=== PATIENT | female | born 1980 | race Caucasian/White ===

== ENCOUNTER 2017-01-09 10:40 | Emergency (ER) | payer OTHER ==
[~2017-01-09] VITALS: Ht 167.6 cm; Wt 77.3 kg
[2017-01-09] MEDS ORDERED: ENOX80DI8 SQ (10:46)
[2017-01-09] MEDS ORDERED: PREN-94 PO (10:48)
[2017-01-09 13:30] VITALS: BP 139/75
== END 2017-01-09 13:45 | disposition home or self-care (01) ==
LOC: EMS 10:43
DX: O9A.212 Injury, poisoning and certain other consequences of external causes complicating pregnancy, second trimester (principal); I10 Essential (primary) hypertension; Z3A.16 16 weeks gestation of pregnancy; V49.88XA Car occupant (driver) (passenger) injured in other specified transport accidents, initial encounter; Y93.89 Activity, other specified; Y92.89 Other specified places as the place of occurrence of the external cause; Y99.8 Other external cause status
CPT/HCPCS: 76805; 99284

== ENCOUNTER 2019-03-21 20:13 | Emergency (ER) | payer OTHER ==
[~2019-03-21] VITALS: Ht 167.6 cm; Wt 81.8 kg
[~2019-03-21 20:13] MED LIST: ENOX80DI8 SQ; PREN-94 PO
[2019-03-21] MEDS ORDERED: RIVA15T PO (20:33)
[2019-03-21 21:21] VITALS: BP 124/84
== END 2019-03-21 22:35 | disposition home or self-care (01) ==
LOC: EMS 20:14
DX: S82.831A Other fracture of upper and lower end of right fibula, initial encounter for closed fracture (principal); W17.2XXA Fall into hole, initial encounter; Y93.89 Activity, other specified; Y92.89 Other specified places as the place of occurrence of the external cause; Y99.8 Other external cause status
CPT/HCPCS: 29515